=== PATIENT | male | born 1980 | race Caucasian/White ===

== ENCOUNTER 2017-08-02 08:08 | Emergency (ER) | payer OTHER ==
[2017-08-02 08:13] VITALS: BP 171/103; PULSE 80; RESP 18; TEMP 97.9; O2SAT 98
--- NOTE | 2017-08-02 08:19 | EDPHY ---
H & P Stated Complaint: diaphoresis, anxiety Time Seen by Provider: 08/02/17 08:19 HPI/ROS: CHIEF COMPLAINT: Diaphoresis, occasional anxiety HISTORY OF PRESENT ILLNESS: Jarod is a very pleasant 36-year-old male presents the emergency department with diaphoresis and occasional anxiety since stopping alcohol 4 weeks ago. The patient denies any tremor, headache, nausea or vomiting. The patient presents to the ED because he has continued to have sweaty palms and generalized diaphoresis which is becoming somewhat invasive with the patient's lifestyle. The patient denies any suicidal or homicidal ideation. He had been drinking approximately 6 beers a day and stopped that a month ago. The patient has no additional past medical history. He denies additional complaints. He currently denies any chest pain, shortness of breath or focal neurologic symptoms. REVIEW OF SYSTEMS: A comprehensive 10 point review of systems is otherwise negative aside from elements mentioned in the history of present illness. Source: Patient - Personal History Current Tetanus/Diphtheria Vaccine: Unsure Current Tetanus Diphtheria and Acellular Pertussis (TDAP): Unsure - Medical/Surgical History Hx Asthma: No Hx Chronic Respiratory Disease: No Hx Diabetes: No Hx Cardiac Disease: No Hx Renal Disease: No Hx Cirrhosis: No Hx Alcoholism: No Hx HIV/AIDS: No Hx Splenectomy or Spleen Trauma: No Other PMH: PMH: denies - Social History Smoking Status: Former smoker - Physical Exam Exam: General Appearance: Alert, no distress Eyes: Pupils equal and round no pallor or injection ENT, Mouth: Mucous membranes moist Respiratory: There are no retractions, lungs are clear to auscultation Cardiovascular: Regular rate and rhythm Gastrointestinal: Abdomen is soft and nontender, no masses, bowel sounds normal Neurological: A&O, normal motor function, normal sensory exam, normal cranial nerves Skin: Warm and dry, no rashes Musculoskeletal: Neck is supple nontender Extremities: symmetrical, full range of motion Constitutional: Initial Vital Signs Temperature (C) 36.6 C 08/02/17 08:11 Heart Rate 80 08/02/17 08:11 Respiratory Rate 18 08/02/17 08:11 Blood Pressure 171/103 H 08/02/17 08:11 O2 Sat (%) 98 08/02/17 08:11 O2 Delivery Mode Room Air Allergies/Adverse Reactions: No Known Allergies Allergy (Unverified 08/02/17 08:13) Home Medications: Medication Instructions Recorded NK [No Known Home Meds] 08/02/17 Medical Decision Making ED Course/Re-evaluation: The patient presents to the ED with symptoms of sweaty palm is a mild diaphoresis in the setting of recent lifestyle modification alcohol cessation. The patient has no evidence of significant withdrawal syndrome. I have informed the patient that there is not an obvious medication I can recommend aside from considering an antihistamine at night. The patient has been referred to our on-call primary care provider for further evaluation and management. Departure - Departure Disposition: Home, Routine, Self-Care Clinical Impression: Diaphoresis Condition: Good Instructions: Alcohol Withdrawal (ED) Additional Instructions: 1. You may try taking Benadryl 50 mg at night for your symptoms. 2. Please follow up with the primary care provider you have been referred to. Referrals: Veronica Rushing MD [Medical Doctor] - As per Instructions
== END 2017-08-02 08:46 | disposition home or self-care (01) ==
DX: R61 Generalized hyperhidrosis (principal); Z87.891 Personal history of nicotine dependence